=== PATIENT | female | born 1980 | race Two or more races ===

== ENCOUNTER 2018-09-28 14:04 | Emergency (ER) | payer MEDICAID ==
[~2018-09-28] VITALS: Ht 154.9 cm; Wt 54.4 kg
--- NOTE | 2018-09-28 14:15 | NUR ---
ED Nurse Note: PT WALKED IN TO ER TODAY FROM HOME. AOX4. PT C/O LEFT FOOT PAIN, 7/10 X FEW WEEKS AFTER POSSIBLY STEPPING ON SOMETHING. NO REDNESS OR DRAINAGE NOTED. FULL ROM OF EXTREMITY. CIRCULATION AND SENSATION INTACT, CAP REFILL < 3 SECONDS, MUSCLE STRENGTH 5/5.
--- NOTE | 2018-09-28 14:52 | Emergency Room Report ---
History of Present Illness General Chief Complaint: Pain Source: Patient Present Illness HPI 38-year-old female presenting with left foot pain for the last few weeks. Says that she may have stepped on something possibly clasped but she doesn't know. It's been increasingly painful. No redness or purulent drainage or fever chills. But says that she walks and avoids using her left heel. Has noted to miss work due to the pain. Got a referral to see a billing spec but has not yet seen him Allergies: Coded Allergies: NAPROXEN (Verified Allergy, Severe, Shortness of Breath, 09/28/18) Patient History Past Medical History: see triage record Past Surgical History: none Pertinent Family History: none Last Menstrual Period: 09/12/18 Now: No Reviewed Nursing Documentation: PMH: Agreed; PSxH: Agreed Nursing Documentation-PMH Past Medical History: No Stated History History Of Psychiatric Problem: Yes Review of Systems All Other Systems: negative except mentioned in HPI Physical Exam Vital Signs Date Time Temp Pulse Resp B/P (MAP) Pulse Ox O2 Delivery O2 Flow Rate FiO2 09/28/18 14:14 99.1 92 20 120/77 98 Room Air Sp02 EP Interpretation: reviewed, normal General Appearance: alert, GCS 15, non-toxic, mild distress Head: normocephalic, atraumatic Eyes: bilateral eye normal inspection, bilateral eye PERRL, bilateral eye EOMI ENT: normal ENT inspection, normal pharynx, normal voice, moist mucus membranes Neck: normal inspection, full range of motion, supple Respiratory: normal inspection, lungs clear, normal breath sounds, no respiratory distress, no retraction, no wheezing, speaking full sentences, chest symmetrical Cardiovascular #1: normal inspection, regular rate, rhythm, normal capillary refill Cardiovascular #2: 2+ radial (R), 2+ radial (L) Gastrointestinal: normal inspection Musculoskeletal: other - Bottom of left heel noted to have some callus formation, possible foreign body palpated, there is no open wounds, no erythema , no purulent drainage. The area Center to palpation Neurologic: normal inspection, alert, oriented x3, responsive, motor strength/ tone normal, sensory intact, normal gait, speech normal Psychiatric: normal inspection, judgement/insight normal, memory normal Skin: normal inspection, normal color, no rash, warm/dry, well hydrated, normal turgor Procedures Incision and Drainage Incision and Drainage : Consent: Verbal Site: L foot Blade Size: 11 I & D Procedure: betadine prep Wound Location: lower extremity Wound's Depth, Shape: superficial Wound Length (cm): 1 Wound Explored: I removed a part of the patient's hard callus that was extremely painful Anesthesia: 1% Lidocaine Volume Anesthetic (ccs): 1 Patient Tolerated: Well Complications: None Medical Decision Making Diagnostic Impression: Primary Impression: Foreign body in foot ER Course 38-year-old female with left heel pain for the last 2 weeks DDX: Possible foreign body palpated Plan: X-ray, pain control ER course: Patient has remained stable during ED stay. I performed a very superficial wound exploration and removed a part of the hard callus Disposition: Patient is to be discharged to home. Prescriptions given are high-dose motrin Patient is instructed to follow up with their primary care doctor within 5 days and to follow up with her billing spec Strict return precautions discussed with patient such as fever, chills, worsening/severe pain, redness, purulent drainage to the area. Patient verbalizes understanding and agrees with plan. Please note that this Emergency Department Report was dictated using [employer] aide technology software, occasionally this can lead to erroneous entry secondary to interpretation by the dictation equipment Xray: Left foot Complete Indication: Pain EP Interpretation: Yes Interpretation: No dislocation, no soft tissue swelling, no fractures Impression: No acute disease, no obvious FB seen Electronically signed by Won Bai MD Last Vital Signs Date Time Temp Pulse Resp B/P (MAP) Pulse Ox O2 Delivery O2 Flow Rate FiO2 09/28/18 14:14 99.1 92 20 120/77 98 Room Air Disposition: HOME, SELF-CARE Condition: Stable Scripts Ibuprofen* (MOTRIN*) 600 Mg Tablet 600 MG ORAL Q8H PRN for For Pain, #30 TAB 0 Refills Prov: Won Bai M.D. 09/28/18 Won Bai M.D. Sep 28, 2018 14:51
[2018-09-28] MEDS ORDERED: Acetaminophen 500mg (ES) tab ORAL ONE (15:00)
[2018-09-28 15:11] VITALS: BP 120/77
--- NOTE | 2018-09-28 15:20 | NUR ---
ED Nurse Note: pt refused tylenol and req ibuprofen, pt states she takes ibuprofen but is okay doesn't get allergic reaction, ERMD notified
[2018-09-28] MEDS ORDERED: IBUPROFEN600 MG ORAL (15:21)
[2018-09-28] MEDS ORDERED: Lidocaine 1% Plain 30 ml INJ ONE (15:45)
--- NOTE | 2018-09-28 15:45 | NUR ---
ED Nurse Note: pt. aao x 4, walks with steadt gait and vss. Right foot assessed, no drainage or open wounds. pt denies pain at rest. per pt when applying pressure to foot when ambulating pt states that pain is 7/10. pt has been given ibuprofen. will continue to monitor and await new orders.
--- NOTE | 2018-09-28 16:10 | NUR ---
ED Nurse Note: Pt is DC per MD order. pt has left with all belongings. pt as given dc and prescription intrusctions. patient verbalized understanding. pt is aox 4, pt vss and has been reported to MD. pt is able to abmulate with steady gait. ID band removed prior to Dc.
[2018-09-28 16:11] VITALS: BP 120/77
--- NOTE | 2018-09-28 16:13 | Diagnostic Imaging Report ---
Indication: Foot pain Comparison: None Findings: 3 views of the left foot were obtained. No acute fractures, malalignment, erosions or periostitis are identified. Soft tissues are unremarkable. Impression: No acute findings
== END 2018-10-06 16:11 | disposition home or self-care (01) ==
LOC: EMR 16:00
DX: S90.852A Superficial foreign body, left foot, initial encounter (principal); X58.XXXA Exposure to other specified factors, initial encounter; Y92.9 Unspecified place or not applicable; L84 Corns and callosities
CPT/HCPCS: 11421; 73630; 99283; J2001; Z7502